=== PATIENT | female | born 1950 | race Caucasian/White ===

== ENCOUNTER 2019-01-07 10:35 | Inpatient (IN) | payer SELFPAY ==
[~2019-01-07] VITALS: Ht 170.2 cm; Wt 58.5 kg
[2019-01-07 11:14] VITALS: BP 220/101
--- NOTE | 2019-01-07 11:22 | NUR ---
PT PLACED IN BED 10.
--- NOTE | 2019-01-07 11:25 | NUR ---
REFERRED BY PMD----HIGH BLOOD PRESSURE 217/93 AND BLOOD SUGAR 216 PT ADMITS SHE DOES NOT TAKE MEDICATIONS ALSO PT DENIES HEADACHE, NO N/V, DENIES DIZZINESS---- DAUGHTER IN LAW WITH PT, ADMITS HER WHICH IS PT'S SON RECENTLY LAST MONTH HX--DM RX---NON COMPLIANT
[2019-01-07] MEDS ORDERED: LORazepam 2 MG/ML VIAL IVP ONE (11:50)
[2019-01-07 12:34] LABS: BASOPHILS # (AUTO) 0.1 K/uL (0.00-0.22); EOSINOPHILS # (AUTO) 0.2 K/uL (0-0.4); EOSINOPHILS % (AUTO) 2.8 % (0.0-4.0); HEMATOCRIT 40.7 % (36-48); HEMOGLOBIN 13.4 g/dL (12.0-16.0); LYMPHOCYTES % (AUTO) 40.5 % (20.5-51.1); MEAN CORPUSCULAR HEMOGLOBIN 28 pg (27-31); MEAN CORPUSCULAR HGB CONC 33 g/dL (33-37); MEAN CORPUSCULAR VOLUME 86.1 fL (80-94); MONOCYTES # (AUTO) 0.4 K/uL (0.8-1.0); MONOCYTES % (AUTO) 5.2 % (1.7-9.3); NEUTROPHILS # (AUTO) 3.7 K/uL (1.8-7.7); NEUTROPHILS % (AUTO) 50.5 % (42.2-75.2); PLATELET COUNT (AUTO) 243 K/uL (140-450); RED BLOOD CELL COUNT(AUTO) 4.73 MIL/uL (4.20-5.40); RED CELL DISTRIBUTION WIDTH 13.5 % (11.6-13.7); WHITE BLOOD COUNT (AUTO) 7.3 K/uL (4.8-10.8)
[2019-01-07 12:45] LABS: POTASSIUM 4.2 mmol/L (3.5-5.1)
[2019-01-07 12:46] LABS: ANION GAP 11.6 (8-16); CARBON DIOXIDE 29.6 mmol/L (21-32); CREATININE 0.9 mg/dL (0.6-1.3)
[2019-01-07 12:51] LABS: PROTHROMBIN TIME 9.4 secs (10.8-13.4)
[2019-01-07 13:02] LABS: ALBUMIN 3.1 g/dL (3.4-5.0); TOTAL BILIRUBIN 0.4 mg/dL (0.0-1.0)
--- NOTE | 2019-01-07 13:25 | NUR ---
PT RESTING IN BED WITH EYES CLOSED. UNABLE TO GIVE URINE AT THIS TIME. VSS.
[2019-01-07 14:37] LABS: APPEARANCE,URINE HAZY (CLEAR); BILIRUBIN,URINE NEGATIVE (NEGATIVE); BLOOD, URINE 1+ (NEGATIVE); COLOR,URINE OTHER (YELLOW); LEUKOCYTE ESTERASE ,URINE 1+ (NEGATIVE); NITRITE, URINE NEGATIVE (NEGATIVE); PH,URINE 7.5 (5.0-9.0); UGLUCOSE 2+ (NEGATIVE)
[2019-01-07 14:49] LABS: WBC,URINE 60-80 /HPF (0-5)
[2019-01-07] MEDS: NACL 0.9% 1,000 ML IV SCH (14:51)
[2019-01-07] MEDS ORDERED: DOCUSATE SODIUM 100 MG GELCAP PO PRN (14:55)
[2019-01-07] MEDS ORDERED: HYDROcodone/APAP 5/325 MG 1 TAB TAB PO PRN (14:55)
[2019-01-07] MEDS ORDERED: ZOLPIDEM 5 MG TAB PO PRN (14:55)
[2019-01-07] MEDS ORDERED: ONDANSETRON 4 MG/2 ML VIAL IM/IVP PRN (14:55)
[2019-01-07] MEDS ORDERED: LORazepam 2 MG/ML VIAL IM/IVP PRN (14:55)
[2019-01-07] MEDS ORDERED: ACETAMINOPHEN 325 MG TAB PO PRN (14:55)
[2019-01-07] MEDS ORDERED: cefTRIAXone 1,000 MG in LIDOCAINE MPF 1% - 5 mL VIAL 2.1 ML IM SCH (15:00)
--- NOTE | 2019-01-07 15:25 | NUR ---
DIETARY CALLED FOR CARDIAC DIET FOOD TRAY FOR PT.
[2019-01-07 15:46] LABS: BARBITURATE, URINE NEGATIVE ng/ml (NEG <=200); BENZODIAZEPINE, URINE NEGATIVE ng/mL (NEG <=200); CANNABINOID, URINE NEGATIVE ng/mL (NEG <=50); COCAINE, URINE NEGATIVE ng/mL (NEG <=300); OPIATE, URINE NEGATIVE ng/mL (NEG <=2000); PHENCYCLIDINE SCREEN,URINE NEGATIVE ng/mL (NEG <=25)
[2019-01-07 15:55] LABS: FREE T4 (FREE THYROXINE) 1.04 ng/dL (0.76-1.46); MAGNESIUM 1.9 mg/dL (1.8-2.4); PHOSPHORUS 3.3 mg/dL (2.5-4.9); THYROID STIMULATING HORMONE 1.34 uIU/mL (0.34-3.74)
--- NOTE | 2019-01-07 16:00 | NUR ---
Patient will be admitted to care of DR GARCIA. Admited to TELE. Will go to room 108A. Belongings list completed. Report to KYARA LARKIN. PT FAMILY AT BEDSIDE.
[2019-01-07 16:20] VITALS: BP 210/83
--- NOTE | 2019-01-07 16:20 | NUR ---
RECEIVED PT REPORT FROM KYARA, WHO GOT RECEIVED THE PT FROM THE ED NURSE. PT IS AWAKE AND ALERT, STATELESS SPEAKING ONLY, WITH DAUGHTER AND DAUGHTER IN LAW AT BEDSIDE WHO ARE GREEK SPEAKING. PT APPEARS IN NO DISTRESS, NO SOB OR C/O PAIN. SKIS IN INTACT, ON ROOM AIR. IV SITE IS IN THE L AC 20 G, PATENT AND INTACT. VS UPON ADMISSION ARE: BP 210/83, TEMP 97.8, O2 96%, HR 64, RR 18. DR TURNER NOTIFIED OF PT'S ELEVATED BP.
--- NOTE | 2019-01-07 16:25 | NUR ---
PT SEEN BY DR TURNER
[2019-01-07] MEDS ORDERED: DEXTROSE 50% 50 ML SYR IVP PRN (16:40)
[2019-01-07] MEDS ORDERED: hydrALAZINE 20 MG/ML VIAL IVP SCH (16:40)
[2019-01-07] MEDS ORDERED: NACL 0.9% 1,000 ML IV SCH (16:45)
[2019-01-07] MEDS ORDERED: MECLIZINE 25 MG TAB PO PRN (17:10)
--- NOTE | 2019-01-07 17:30 | NUR ---
RECHECKED PT'S BP, 181/69 AT THIS TIME
[2019-01-07] MEDS ORDERED: LISINOPRIL 10 MG TAB PO SCH (18:00)
[2019-01-07] MEDS ORDERED: HYDROCHLOROTHIAZIDE 25 MG TAB PO ONE (18:55)
[2019-01-07] MEDS ORDERED: hydrALAZINE 20 MG/ML VIAL IVP PRN (18:55)
--- NOTE | 2019-01-07 19:00 | NUR ---
PT'S BP IS 206/[address] TURNER IS AWARE.
--- NOTE | 2019-01-07 19:30 | NUR ---
RECEIVED REPORT FORM MICHAEL LARKIN DAYSHIFT NURSE AT BEDSIDE FOR CONTINUITY OF CARE, PT IN STABLE CONDITION.
--- NOTE | 2019-01-07 19:32 | NUR ---
ENDORSED PT TO RADIO ASSEMBLER NURSE IN STABLE CONDITION.
[2019-01-07 20:00] VITALS: BP 201/82
--- NOTE | 2019-01-07 20:00 | NUR ---
PT IN BED, VINCENTIAN SPEAKING AND AOX3-4. PT SKIN INTACT AND SHE HAS A RAC 20 GUAGE INTACT AND ASYMPTOMATIC RUNNING N/S AT 60MLS/HR. V/S A FOLLOWS T 98.1 P 79 R 18 B/P 201/82 02 94% ON ROOM AIR. PT GIVEN DUE ORETIC FOR INCREASED B/P. PT WAS UP TO TOILET AND BACK WITH STAND BY ASSISTANCE. WILL CONTINUE TO MONITOR FOR SAFETY AND HTN. ALL FALLS PRECAUTIONS IN PLACE. Addendum: 01/08/19 at 0108 by Darya Anderson RN LEFT AC 20 GUAGE NOT RIGHT AC
[2019-01-07] MEDS: amLODIPine 5 MG TAB PO SCH (20:11)
[2019-01-07] MEDS: INSULIN LISPRO SLIDING SCALE 100 UNITS/ML VIAL SUBQ PRN (20:31)
[2019-01-07] MEDS: BLOOD GLUCOSE MONITORING 1 DEV DEV FS SCH (20:45)
--- NOTE | 2019-01-07 21:00 | NUR ---
PT IN BED WITH ALL FALLS PRECAUTIONS IN PLACE. PT GIVEN DUE MEDS OF NORVASC AND HEPARIN. BLOOD SUGAR LEVEL IS 290, PT GIVEN 6 UNITS OF HUMALOG COVERAGE. WILL CONTINUE TO MONITOR FOR SAFETY AND HTN.
--- NOTE | 2019-01-07 23:45 | NUR ---
PT IN BED SLEEPING NO S/S OF PAIN OR DISTRESS NOTED. V/S FOLLOWS T 97.7 P 68 R 18 B/P 127/50 02 93% ON ROOM AIR. ALL FALLS PRECAUTIONS IN PLACE AND CALL RICH IN REACH.
[2019-01-08] VITALS (8 sets, daily range): BP systolic 127–174; BP diastolic 50–87
--- NOTE | 2019-01-08 04:00 | NUR ---
PT IN BED NO S/S OF PAIN OR DISTRESS B/P IS 160/58.
[2019-01-08] MEDS: INSULIN LISPRO SLIDING SCALE 100 UNITS/ML VIAL SUBQ PRN ×4 (06:37→21:06)
[2019-01-08] MEDS: BLOOD GLUCOSE MONITORING 1 DEV DEV FS SCH ×4 (06:40→21:10)
[2019-01-08 07:12] LABS: ANION GAP 11.6 (8-16); CARBON DIOXIDE 24.6 mmol/L (21-32); CREATININE 0.9 mg/dL (0.6-1.3); POTASSIUM 4.2 mmol/L (3.5-5.1)
--- NOTE | 2019-01-08 07:23 | NUR ---
Received bedside report from pm nurse Darya. Pt resting in bed, awake, verbally responsive in sammarinese, respirations even & nonlabored. Bed alarm on. Call light within reach.
[2019-01-08 07:29] LABS: BASOPHILS % (AUTO) 0.5 % (0.0-2.0); EOSINOPHILS # (AUTO) 0.2 K/uL (0-0.4); EOSINOPHILS % (AUTO) 1.9 % (0.0-4.0); HEMATOCRIT 37.9 % (36-48); HEMOGLOBIN 12.5 g/dL (12.0-16.0); LYMPHOCYTES % (AUTO) 30.8 % (20.5-51.1); MEAN CORPUSCULAR HEMOGLOBIN 29 pg (27-31); MEAN CORPUSCULAR HGB CONC 33 g/dL (33-37); MEAN CORPUSCULAR VOLUME 86.1 fL (80-94); MONOCYTES # (AUTO) 0.4 K/uL (0.8-1.0); MONOCYTES % (AUTO) 3.8 % (1.7-9.3); NEUTROPHILS # (AUTO) 6.1 K/uL (1.8-7.7); PLATELET COUNT (AUTO) 224 K/uL (140-450); RED CELL DISTRIBUTION WIDTH 13.5 % (11.6-13.7); WHITE BLOOD COUNT (AUTO) 9.7 K/uL (4.8-10.8)
[2019-01-08] MEDS ORDERED: metFORMIN 500 MG TAB PO SCH ×2 (08:00→21:00)
[2019-01-08] MEDS: NACL 0.9% 1,000 ML IV SCH (08:13)
[2019-01-08] MEDS: HYDROCHLOROTHIAZIDE 25 MG TAB PO SCH (08:31)
[2019-01-08] MEDS: LISINOPRIL 10 MG TAB PO SCH (08:31)
[2019-01-08] MEDS: ASPIRIN 81 MG TAB.CHEW PO SCH (08:31)
[2019-01-08] MEDS: LACTOBACILLUS RHAMNOSUS GG 1 EACH CAP PO SCH (08:32)
[2019-01-08] MEDS: ATORVASTATIN 20 MG TAB PO SCH (08:32)
--- NOTE | 2019-01-08 09:02 | NUR ---
PATIENT HAS BEEN SCREENED AND CATEGORIZED MODERATE NUTRITION RISK. PATIENT WILL BE SEEN WITHIN 3-5 DAYS OF ADMISSION. 01/10/19DANYA BLANK [address]
--- NOTE | 2019-01-08 10:15 | NUR ---
Pt sitting up in chair at bedside, watching TV. No c/o discomfort/pain, no signs of distress. Left AC IV intact with ongoing NS @ 60ml/hr. Call light within reach.
--- NOTE | 2019-01-08 12:15 | NUR ---
Pt transferred to room 111A. All belongings with pt upon transfer. Pt able to amb with steady gait, no c/o discomfort, respirations even & nonlabored. Right AC IV intact with ongoing NS @ 30ml/hr. Call light within reach.
--- NOTE | 2019-01-08 18:36 | NUR ---
Left AC IV leaking, no swelling/infiltration noted. Cont to leak after repositioning of limb, & positioning of IV. IV removed, catheter intact. New IV access to right forearm established, resumed NS @ 30ml/hr. Pt sitting denies any discomfort, respirations even & nonlabored, no c/o pain. Call light within reach.
--- NOTE | 2019-01-08 19:10 | NUR ---
RECEIVED REPORT FORM MANJINDER RN DAYSHIFT NURSE AT BEDSIDE FOR CONTINUITY OF CARE, PT IN STABLE CONDITION.
--- NOTE | 2019-01-08 19:10 | NUR ---
Report given to pm nurse Lackey. Pt sitting up in chair at bedside, no signs of distress. Addendum: 01/08/19 at 1912 by Angelique Silveira RN Addendum: male visitor at bedside with pt.
--- NOTE | 2019-01-08 20:00 | NUR ---
PT IN LOW BED WITH ALL FALLS PRECAUTIONS IN PLACE. PT DENIES PAIN OR DISCOMFORT. IV SITE 22 G ON R F/A INTACT AND FLUSHED PATENT. V/S FOLLOWS T 97.0 P 76 R 18 B/P 171/87 02 98% ON ROOM AIR. WILL ADMINISTER B/P MEDICATIONS.
[2019-01-08] MEDS: amLODIPine 5 MG TAB PO SCH (20:41)
--- NOTE | 2019-01-08 21:00 | NUR ---
PT GIVEN ORDERED NORVASC METFORMIN AND HEPARIN SHOT. EDUCATION REGARDING MEDICATION AND PT DIAGNOSIS PROVIDED TO PT AND FAMILY AT BEDSIDE. PT VERBALIZED UNDERSTANDING. PT ALSO GIVEN PRN APRESOLINE DUE TO HIGH SBP PER PRN ORDER. WILL CONTINUE TO MONITOR PT B/P. PT FINGERSTICK IS 260 AND SHE WAS PROVIDED 6 UNITS OF HUMALOG COVERAGE. PT HAS NO C/O VOICED AND ALL REQUESTED NEEDS ATTENDED. ALL FALLS PRECAUTIONS IN PLACE.
--- NOTE | 2019-01-08 22:00 | NUR ---
PT ESCORTED TO TOILET AND BACK. B/P RETAKEN P 77 B/P 160/80. WILL CONTINUE TO MONITOR BLOOD PRESSURE. ALL FALLS PRECAUTIONS IN PLACE.
[2019-01-09] VITALS: BP 154/77
--- NOTE | 2019-01-09 00:30 | NUR ---
PT ASLEEP BUT AROUSABLE TO NAME AND LIGHT TOUCH. NO S/S OF PAIN OR DISTRESS NOTED. V/S FOLLOWS T 97.9 P 79 R 18 B/P 154/77 02 96% ON ROOM AIR. IV SITE INTACT AND ASYMPTOMATIC RUNNING N/S ORDERED. ALL FALLS PRECAUTIONS IN PLACE.
[2019-01-09 04:00] VITALS: BP 138/71
[2019-01-09] MEDS: INSULIN LISPRO SLIDING SCALE 100 UNITS/ML VIAL SUBQ PRN (06:32)
[2019-01-09] MEDS: NACL 0.9% 1,000 ML IV SCH (06:34)
[2019-01-09] MEDS: BLOOD GLUCOSE MONITORING 1 DEV DEV FS SCH (06:34)
[2019-01-09 07:02] LABS: BASOPHILS # (AUTO) 0.1 K/uL (0.00-0.22); BASOPHILS % (AUTO) 0.9 % (0.0-2.0); EOSINOPHILS # (AUTO) 0.3 K/uL (0-0.4); EOSINOPHILS % (AUTO) 3.8 % (0.0-4.0); HEMATOCRIT 38.4 % (36-48); HEMOGLOBIN 12.8 g/dL (12.0-16.0); LYMPHOCYTES # (AUTO) 2.9 K/uL (2.5-16.5); LYMPHOCYTES % (AUTO) 42.5 % (20.5-51.1); MEAN CORPUSCULAR HEMOGLOBIN 29 pg (27-31); MEAN CORPUSCULAR HGB CONC 33 g/dL (33-37); MEAN CORPUSCULAR VOLUME 85.3 fL (80-94); MONOCYTES # (AUTO) 0.4 K/uL (0.8-1.0); MONOCYTES % (AUTO) 6.2 % (1.7-9.3); NEUTROPHILS # (AUTO) 3.2 K/uL (1.8-7.7); NEUTROPHILS % (AUTO) 46.6 % (42.2-75.2); PLATELET COUNT (AUTO) 229 K/uL (140-450); RED BLOOD CELL COUNT(AUTO) 4.51 MIL/uL (4.20-5.40); RED CELL DISTRIBUTION WIDTH 13.8 % (11.6-13.7); WHITE BLOOD COUNT (AUTO) 6.9 K/uL (4.8-10.8)
[2019-01-09 07:13] LABS: CARBON DIOXIDE 22.3 mmol/L (21-32); POTASSIUM 4.3 mmol/L (3.5-5.1)
--- NOTE | 2019-01-09 07:30 | NUR ---
Received report from pm nurse Darya. Pt resting in bed, aaox4, verbally responsive in thai. No c/o pain/discomfort, no signs of distress, respirations even & nonlabored in room air. Right forearm IV intact & asymptomatic with ongoing NS @ 30ml/hr. Call light within reach.
[2019-01-09 07:33] LABS: CHOL/HDL RATIO 5.8 (1-4.5)
[2019-01-09 07:56] VITALS: BP 147/71
[2019-01-09] MEDS ORDERED: metFORMIN 500 MG TAB PO SCH (08:00)
[2019-01-09] MEDS ORDERED: ASPI81CT95 PO (08:05)
[2019-01-09] MEDS ORDERED: METF500T PO (08:05)
[2019-01-09] MEDS ORDERED: ORE25 PO (08:05)
[2019-01-09] MEDS ORDERED: AMLO5TAB6 PO (08:05)
[2019-01-09] MEDS ORDERED: ATOR20TA40 PO (08:05)
[2019-01-09] MEDS ORDERED: LISI10TA11 PO (08:05)
[2019-01-09] MEDS: LISINOPRIL 10 MG TAB PO SCH (08:42)
[2019-01-09] MEDS: LACTOBACILLUS RHAMNOSUS GG 1 EACH CAP PO SCH (08:42)
[2019-01-09] MEDS: HYDROCHLOROTHIAZIDE 25 MG TAB PO SCH (08:43)
[2019-01-09] MEDS: ATORVASTATIN 20 MG TAB PO SCH (08:43)
[2019-01-09] MEDS: ASPIRIN 81 MG TAB.CHEW PO SCH (08:43)
--- NOTE | 2019-01-09 09:30 | NUR ---
Per Dr Hart, pt may have IV Rocephin anytime between now & 11am so pt can be discharged by noon.
--- NOTE | 2019-01-09 10:44 | NUR ---
PATIENT RECEIVED DIABETES AND HYPERTENSION NUTRITION EDUCATION IN [facility], BOTH VERBAL AND WRITTEN HANDOUTS.
[2019-01-09 11:33] VITALS: BP 152/83
--- NOTE | 2019-01-09 13:00 | NUR ---
Written & verbal discharge instructions provided to pt, with croatian/gibraltarian translation provided by [id number] Sunitha per pt request. Pt verbalized understanding of discharge teachings. Right forearm IV discontinued, catheter intact, site with min bleeding covered with dry gauze & tape. Pt amb off unit with steady gait at this time with son & [id number]. Offered wheelchair but pt declined. Name band removed. All belongings with pt upon discharge.
== END 2019-01-09 13:00 | disposition home or self-care (01) | DRG 74 ==
LOC: MED 10:35 → MMU 14:50 → MTU 16:18
PROVIDERS: ADMIT General Practice; ATTEND General Practice
DX: G90.9 Disorder of the autonomic nervous system, unspecified (principal); N39.0 Urinary tract infection, site not specified; D68.59 Other primary thrombophilia; I16.0 Hypertensive urgency; I10 Essential (primary) hypertension; E11.9 Type 2 diabetes mellitus without complications; E86.0 Dehydration; E11.65 Type 2 diabetes mellitus with hyperglycemia; E78.5 Hyperlipidemia, unspecified
CPT/HCPCS: 36415; 70450; 71045; 80048; 80053; 80305; 81001; 82150; 82948; 83036; 83605; 83690; 83735; 83880; 84100; 84134; 84439; 84443; 84484; 85025; 85610; 85730; 87081; 87086; 87186; 93005; 93880; 93970; 93976; 96374; 96375; 99285; J0360; J0696; J1644; J1815; J2060; J7030; J7060; Q0092